=== PATIENT | female | born 1995 | race Caucasian/White ===

== ENCOUNTER → 2021-01-08 | Outpatient (CLI) | payer BC, OTHER ==
[~2021-01-08] VITALS: Ht 165.1 cm; Wt 68.0 kg
[~2021-01-08] MED LIST: BRINTELLIX20 MG PO; HAIR, SKIN & N1 EAC2 PO; LINZESS72 MCG PO; NALTREXONE HCL50 MG PO; PROBIOTIC1 EAC7 PO; SAPHRIS5 MG SUBLING; TOPIRAMATE50 MG PO; VYVANSE50 MG PO; WELLBUTRIN XL150 MG PO
[2021-01-08 09:47] VITALS: BP 122/84
--- NOTE | 2021-01-08 10:29 | NUR ---
Pain Clinic Assessment: 1. History of Osteoarthritis: Not Applicable History of Rheumatoid Arthritis: Not Applicable 2. Height: 5 ft. 5 in. 165.1 cm. Weight: 150.0 lb. oz. 68.040 kg. Patient's BMI: 25.0 3. Vital Signs: BP: 122/84 Pulse: 97 Resp: 14 Temp: 02 Sat: 100 ECG Mon: 4. Pain Intensity: 5 5. Fall Risk: Dizziness: N Needs help standing or walking: N Fallen in the last 3 months: N Fall risk comments: 6. Patient on Blood Thinner: None 7. History of Hypertension: N 8. Opioid Therapy greater than 6 weeks: N Opiate Contract Signed: 9. Risk Assessment Tool Provided: 4-MOD RISK 10. Functional Assessment Tool: 11. Recreational Drug Use: Never Drug Type: Tobacco Use: Never Smoker Tobacco Type: Amount or Packs/day: How Many Years: Alcohol Use: Yes Frequency: Weekly Quant: 1-2/WEEK
== END ==
LOC: PAIN 06:52
PROVIDERS: ATTEND Anesthesiology Pain Medicine
DX: G57.10 Meralgia paresthetica, unspecified lower limb (principal); R20.2 Paresthesia of skin

== ENCOUNTER → 2021-04-13 | Outpatient (CLI) | payer BC, OTHER ==
[~2021-04-13] VITALS: Ht 165.1 cm; Wt 73.6 kg
[2021-04-13 10:28] VITALS: BP 105/75
--- NOTE | 2021-04-13 10:36 | NUR ---
Pain Clinic Assessment: 1. History of Osteoarthritis: Not Applicable History of Rheumatoid Arthritis: Not Applicable 2. Height: 5 ft. 5 in. 165.1 cm. Weight: 162.2 lb. oz. 73.573 kg. Patient's BMI: 27.0 3. Vital Signs: BP: 105/75 Pulse: 89 Resp: 14 Temp: 02 Sat: 97 ECG Mon: 4. Pain Intensity: 7 5. Fall Risk: Dizziness: N Needs help standing or walking: N Fallen in the last 3 months: N Fall risk comments: 6. Patient on Blood Thinner: None 7. History of Hypertension: N 8. Opioid Therapy greater than 6 weeks: N Opiate Contract Signed: 9. Risk Assessment Tool Provided: 4-MOD RISK 10. Functional Assessment Tool: 11. Recreational Drug Use: Never Drug Type: Tobacco Use: Never Smoker Tobacco Type: Amount or Packs/day: How Many Years: Alcohol Use: Yes Frequency: Monthly Quant: about three drinks
== END | disposition home or self-care (01) ==
LOC: PAIN 01-12 07:06
PROVIDERS: ATTEND Anesthesiology Pain Medicine
DX: G57.12 Meralgia paresthetica, left lower limb (principal); Z98.890 Other specified postprocedural states; Z79.899 Other long term (current) drug therapy; Z88.8 Allergy status to other drugs, medicaments and biological substances

== ENCOUNTER → 2021-05-21 | Outpatient (CLI) | payer BC, OTHER ==
[~2021-05-21] VITALS: Ht 165.1 cm; Wt 72.1 kg
[2021-05-21 09:28] VITALS: BP 112/78
--- NOTE | 2021-05-21 09:35 | NUR ---
Pain Clinic Assessment: 1. History of Osteoarthritis: Not Applicable History of Rheumatoid Arthritis: Not Applicable 2. Height: 5 ft. 5 in. 165.1 cm. Weight: 159.0 lb. oz. 72.122 kg. Patient's BMI: 26.5 3. Vital Signs: BP: 112/78 Pulse: 85 Resp: 14 Temp: 02 Sat: 98 ECG Mon: 4. Pain Intensity: 7 5. Fall Risk: Dizziness: N Needs help standing or walking: N Fallen in the last 3 months: N Fall risk comments: 6. Patient on Blood Thinner: None 7. History of Hypertension: N 8. Opioid Therapy greater than 6 weeks: N Opiate Contract Signed: 9. Risk Assessment Tool Provided: 4-MOD RISK 10. Functional Assessment Tool: 11. Recreational Drug Use: Never Drug Type: Tobacco Use: Never Smoker Tobacco Type: Amount or Packs/day: How Many Years: Alcohol Use: Yes Frequency: Weekly Quant: 2
== END | disposition home or self-care (01) ==
LOC: PAIN 08:26
PROVIDERS: ATTEND Anesthesiology Pain Medicine
DX: G57.12 Meralgia paresthetica, left lower limb (principal); F31.9 Bipolar disorder, unspecified; Z98.890 Other specified postprocedural states; Z79.899 Other long term (current) drug therapy; Z88.8 Allergy status to other drugs, medicaments and biological substances